=== PATIENT | female | born 1960 | race Caucasian/White ===

== ENCOUNTER 2017-03-24 19:52 | Emergency (ER) | payer OTHER, MEDICARE ==
--- NOTE | 2017-03-24 21:54 | RADIOLOGY REPORT (SQ) ---
EXAM DESCRIPTION: NOSE/NASAL BONES COMPLETED DATE/TIME: 03/24/2017 9:41 pm REASON FOR STUDY: Injury COMPARISON: None. NUMBER OF VIEWS: Three view. TECHNIQUE: Images of the facial and nasal bones acquired. LIMITATIONS: None. FINDINGS: ORBITS: No fracture. No foreign body. SINUSES: No mucosal thickening. No air fluid levels. FACIAL AND NASAL BONES: No fracture. OTHER: Surgical hardware. IMPRESSION: NO FOREIGN BODY OR FRACTURE OF THE FACIAL OR NASAL BONES. TECHNICAL DOCUMENTATION: JOB ID: [id number] [employer]- All Rights Reserved
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
[2017-03-25 00:18] VITALS: BP 136/98
== END 2017-03-25 00:18 | disposition home or self-care (01) ==
LOC: ER 19:52
DX: S02.2XXA Fracture of nasal bones, initial encounter for closed fracture (principal); W50.0XXA Accidental hit or strike by another person, initial encounter
CPT/HCPCS: 70160; 99283

== ENCOUNTER → 2017-04-02 | Outpatient (CLI) | payer OTHER, MEDICARE ==
--- NOTE | 2017-04-02 09:16 | WOMENS IMAGING REPORT ---
EXAM DESCRIPTION: BILAT SCREENING MAMMO W/CAD COMPLETED DATE/TIME: 04/02/2017 9:03 am REASON FOR STUDY: ROUTINE SCREENING; Z12.31 Z12.31 ENCNTR SCREEN MAMMOGRAM FOR MALIGNANT NEOPLASM O F NATI COMPARISON: 05/10/2015 TECHNIQUE: Standard craniocaudal and mediolateral oblique views of each breast recorded using [employer] l acquisition. LIMITATIONS: None. FINDINGS: No masses, calcifications or architectural distortion. No areas of suspicion. Read with the assistance of CAD. .[facility] - R2 Cenova Version 1.3 .[facility] - R2 Cenova Version 1.3 .[facility] - R2 Cenova Version 2.4 .[facility] [place] [facility] - R2 Cenova Version 2.4 .[facility] - R2 [employer] Payer Version 9.2 IMPRESSION: NORMAL MAMMOGRAM. BIRADS 1. BREAST DENSITY: b. There are scattered areas of fibroglandular density. BIRAD: 1 NEGATIVE RECOMMENDATION: ROUTINE SCREENING COMMENT: The patient has been notified of the results by letter per SA requirements. Additional no tification policies are in place for contacting patient with suspicious or incomplete findings. Quality ID #[id number]: The [employer] recommends an annual screening mammogram for women aged 40 years or over. This facility utilizes a reminder system to ensure that all patients receive reminder letters, and/or direct phone calls for appointments. This includes reminders for routine scr eening mammograms, diagnostic mammograms, or other Breast Imaging Interventions when appropriate. Th is patient will be placed in the appropriate reminder system. The [employer] (ACR) has developed recommendations for screening MRI of the breast s in certain patient populations, to be used in conjunction with mammography. Breast MRI surveillanc e may be appropriate for women with more than 20% lifetime risk of developing breast cancer as deter mined by genetic testing, significant family history of the disease, or history of mantle radiation f or Hodgkins Disease. ACR Practice Guidelines 2008. TECHNICAL DOCUMENTATION: FINDING NUMBER: (1) ASSESSMENT: (1) JOB ID: [id number] [employer]- All Rights Reserved
== END ==
LOC: WI 08:31
PROVIDERS: ATTEND Physician Assistant
DX: Z12.31 Encounter for screening mammogram for malignant neoplasm of breast (principal)
CPT/HCPCS: 77067

== ENCOUNTER 2017-06-29 12:27 | Emergency (ER) | payer MEDICARE ==
--- NOTE | 2017-06-29 12:58 | EKG REPORT ---
SEVERITY:- NORMAL ECG - SINUS RHYTHM : Confirmed by: Perlita Wood 29-Jun-2017 12:57:57
[2017-06-29] MEDS ORDERED: ACETAMINOPHEN 325 MG TABLET PO ONE (13:59)
--- NOTE | 2017-06-29 14:00 | ER Document Report ---
ED Medical Screen (RME) - General Chief Complaint: Back Pain Stated Complaint: BACK PAIN Time Seen by Provider: 06/29/17 13:58 Notes: Patient complains of substernal chest pain to go straight through to her back. She states it started approximately 11 AM this morning. She has had some nausea and some shortness of breath. She has a history of mitral valve prolapse. No history of coronary artery disease. No previous stress test. TRAVEL OUTSIDE OF THE [place] IN LAST 30 DAYS: No - Related Data Allergies/Adverse Reactions: aspirin [Aspirin] Allergy (Intermediate, Verified 06/29/17 13:41) VOMITING Iodinated Contrast- Oral and IV Dye Allergy (Verified 06/29/17 13:41) Past Medical History - Social History Chew tobacco use (# tins/day): No Frequency of alcohol use: None Drug Abuse: None - Past Medical History Cardiac Medical History: Reports: Hx Hypercholesterolemia, Hx Hypertension, Hx Heart Murmur - MVP Neurological Medical History: Reports: Hx Migraine - Since age 9. Endocrine Medical History: Reports: Hx Diabetes Mellitus Type 1, Hx Diabetes Mellitus Type 2, Hx Hypothyroidism Renal/ Medical History: Reports: Hx Ovarian Cysts. Denies: Hx Peritoneal Dialysis GI Medical History: Reports: Hx Gastroesophageal Reflux Disease Musculoskeltal Medical History: Reports Hx Musculoskeletal Deformity Past Surgical History: Reports: Hx Cholecystectomy, Hx Hysterectomy, Hx Orthopedic Surgery - Failed L4-L5 and L5-S1 fusion, rotator cuff surgery, Hx Tubal Ligation - Immunizations Immunizations up to date: Yes Hx Diphtheria, Pertussis, Tetanus Vaccination: Yes Physical Exam - Vital signs Vitals: Temp Pulse Resp BP Pulse Ox 97.5 F 68 16 143/81 H 96 06/29/17 12:50 06/29/17 12:50 06/29/17 12:50 06/29/17 12:50 06/29/17 12:50 Course - Vital Signs Vital signs: Temp Pulse Resp BP Pulse Ox 97.5 F 68 16 143/81 H 96 06/29/17 12:50 06/29/17 12:50 06/29/17 12:50 06/29/17 12:50 06/29/17 12:50
--- NOTE | 2017-06-29 14:36 | RADIOLOGY REPORT (SQ) ---
EXAM DESCRIPTION: CHEST 2 VIEWS COMPLETED DATE/TIME: 06/29/2017 2:19 pm REASON FOR STUDY: cp COMPARISON: Two-view chest 03/20/2013 EXAM PARAMETERS: NUMBER OF VIEWS: two views TECHNIQUE: Digital Frontal and Lateral radiographic views of the chest acquired. RADIATION DOSE: NA LIMITATIONS: none FINDINGS: LUNGS AND PLEURA: Stable minimal scarring in the right middle lobe. No acute infiltrates. No pleural effusion. No pneumothorax. MEDIASTINUM AND HILAR STRUCTURES: No masses or contour abnormalities. HEART AND VASCULAR STRUCTURES: Heart normal size. No evidence for failure. BONES: No acute findings. HARDWARE: Clips right upper quadrant post cholecystectomy OTHER: No other significant finding. IMPRESSION: NO ACUTE RADIOGRAPHIC FINDING IN THE CHEST. TECHNICAL DOCUMENTATION: JOB ID: [id number] [employer]- All Rights Reserved Reading location - IP/workstation name: [facility]-[email or web address]
[2017-06-29 14:43] LABS: ABSOLUTE BASOPHILS # (AUTO) 0.1 10^3/uL (0.0-0.2); ABSOLUTE EOSINOPHILS # (AUTO) 0.5 10^3/uL (0.0-0.6); ABSOLUTE LYMPHOCYTES (AUTO) 2.6 10^3/uL (0.5-4.7); ABSOLUTE MONOCYTES (AUTO) 0.7 10^3/uL (0.1-1.4); ABSOLUTE NEUT (AUTO) 4.3 10^3/uL (1.7-8.2); BASOPHILS % (AUTO) 1.4 % (0-2); EOSINOPHILS % (AUTO) 5.5 % (0-6); HEMATOCRIT 44.7 % (36.0-47.0); HEMOGLOBIN 14.9 g/dL (12.0-15.5); LYMPHOCYTES % (AUTO) 31.8 % (13-45); MEAN CORPUSCULAR HEMOGLOBIN 29.3 pg (27.0-33.4); MEAN CORPUSCULAR HGB CONC 33.2 g/dL (32.0-36.0); MEAN CORPUSCULAR VOLUME 88 fl (80-97); MONOCYTES % (AUTO) 8.4 % (3-13); PLATELET COUNT 224 10^3/uL (150-450); RED BLOOD COUNT 5.08 10^6/uL (3.72-5.28); RED CELL DISTRIBUTION WIDTH 14.1 % (11.5-14.0); SEGMENTED NEUTROPHILS % (AUTO) 52.9 % (42-78); TOTAL CELLS COUNTED % (AUTO) 100 %; WHITE BLOOD COUNT 8.2 10^3/uL (4.0-10.5)
[2017-06-29 14:54] LABS: APPEARANCE,URINE SLIGHTLY-CLOUDY; BILIRUBIN,URINE NEGATIVE (NEGATIVE); COLOR,URINE YELLOW; GLUCOSE, URINE NEGATIVE (NEGATIVE); KETONES,URINE NEGATIVE (NEGATIVE); LEUKOCYTE ESTERASE,URINE LARGE (NEGATIVE); NITRITE,URINE NEGATIVE (NEGATIVE); PROTEIN,URINE NEGATIVE (NEGATIVE); UROBILINOGEN,URINE NEGATIVE mg/dL (<2.0)
[2017-06-29 15:01] LABS: ALANINE AMINOTRANSFERASE 28 U/L (9-52); ALBUMIN 4.5 g/dL (3.5-5.0); ALKALINE PHOSPHATASE 64 U/L (38-126); ANION GAP 11 (5-19); ASPARTATE AMINO TRANSFERASE 19 U/L (14-36); BILIRUBIN,DIRECT 0.2 mg/dL (0.0-0.4); BILIRUBIN,TOTAL 0.3 mg/dL (0.2-1.3); BLOOD UREA NITROGEN 10 mg/dL (7-20); CALCIUM 10.3 mg/dL (8.4-10.2); CARBON DIOXIDE 27 mmol/L (22-30); CHLORIDE 108 mmol/L (98-107); GLUCOSE 103 mg/dL (75-110); LIPASE 199.3 U/L (23-300); SODIUM 146.3 mmol/L (137-145); TOTAL PROTEIN 7.3 g/dL (6.3-8.2)
[2017-06-29] MEDS ORDERED: PREDNISONE 20 MG TABLET PO ONE (16:39)
--- NOTE | 2017-06-29 16:39 | ER Document Report ---
ED General - General Chief Complaint: Back Pain Stated Complaint: BACK PAIN Time Seen by Provider: 06/29/17 13:58 Mode of Arrival: Ambulatory Information source: Patient Notes: 56-year-old female history of hypertension hyperlipidemia diabetes presents with complaints of chest wall pain. Patient denies any fevers or chills denies any shortness of breath of breathing. Patient notes with range of motion her pain worsens,. Patient denies any coronary artery disease patient notes symptoms started just prior to arrival TRAVEL OUTSIDE OF THE [place] IN LAST 30 DAYS: No - HPI Onset: Just prior to arrival Onset/Duration: Sudden Quality of pain: Burning Severity: Mild Pain Level: 1 Associated symptoms: Body/muscle aches, Chest pain Exacerbated by: Movement Relieved by: Denies Similar symptoms previously: No Recently seen / treated by doctor: No - Related Data Allergies/Adverse Reactions: aspirin [Aspirin] Allergy (Intermediate, Verified 06/29/17 13:41) VOMITING Iodinated Contrast- Oral and IV Dye Allergy (Verified 06/29/17 13:41) Past Medical History - Social History Smoking Status: Never Smoker Cigarette use (# per day): No Chew tobacco use (# tins/day): No Smoking Education Provided: No Frequency of alcohol use: None Drug Abuse: None Family History: Reviewed & Not Pertinent Patient has suicidal ideation: No Patient has homicidal ideation: No - Past Medical History Cardiac Medical History: Reports: Hx Hypercholesterolemia, Hx Hypertension, Hx Heart Murmur - MVP Neurological Medical History: Reports: Hx Migraine - Since age 9. Endocrine Medical History: Reports: Hx Diabetes Mellitus Type 1, Hx Diabetes Mellitus Type 2, Hx Hypothyroidism Renal/ Medical History: Reports: Hx Ovarian Cysts. Denies: Hx Peritoneal Dialysis GI Medical History: Reports: Hx Gastroesophageal Reflux Disease Musculoskeltal Medical History: Reports Hx Musculoskeletal Deformity Past Surgical History: Reports: Hx Cholecystectomy, Hx Hysterectomy, Hx Orthopedic Surgery - Failed L4-L5 and L5-S1 fusion, rotator cuff surgery, Hx Tubal Ligation - Immunizations Immunizations up to date: Yes Hx Diphtheria, Pertussis, Tetanus Vaccination: Yes Hx Pneumococcal Vaccination: 11/30/12 Review of Systems - Review of Systems Notes: REVIEW OF SYSTEMS: CONSTITUTIONAL : Denies fever, chills, or sweats. Denies recent illness. EENT: Denies eye, ear, throat, or mouth pain or symptoms. Denies nasal or sinus congestion or discharge. Denies throat, tongue, or mouth swelling or difficulty swallowing. CARDIOVASCULAR: Admits to chest wall pain sternal pain RESPIRATORY: Denies cough, cold, or chest congestion. Denies shortness of breath, difficulty breathing, or wheezing. GASTROINTESTINAL: Denies abdominal pain or distention. Denies nausea, vomiting , or diarrhea. Denies blood in vomitus, stools, or per rectum. Denies black, tarry stools. Denies constipation. GENITOURINARY: Denies difficulty urinating, painful urination, burning, frequency, blood in urine, or discharge. FEMALE GENITOURINARY: Denies vaginal bleeding, heavy or abnormal periods, irregular periods. Denies vaginal discharge or odor. MUSCULOSKELETAL: Denies back or neck pain or stiffness. Denies joint pain or swelling. SKIN: Denies rash, lesions or sores. HEMATOLOGIC : Denies easy bruising or bleeding. LYMPHATIC: Denies swollen, enlarged glands. NEUROLOGICAL: Denies confusion or altered mental status. Denies passing out or loss of consciousness. Denies dizziness or lightheadedness. Denies headache. Denies weakness or paralysis or loss of use of either side. Denies problems with gait or speech. Denies sensory loss, numbness, or tingling. Denies seizures. PSYCHIATRIC: Denies anxiety or stress. Denies depression, suicidal ideation, or homicidal ideation. ALL OTHER SYSTEMS REVIEWED AND NEGATIVE. PHYSICAL EXAMINATION: GENERAL: Well-appearing, well-nourished and in no acute distress. HEAD: Atraumatic, normocephalic. EYES: Pupils equal round and reactive to light, extraocular movements intact, conjunctiva are normal. ENT: Nares patent, oropharynx clear without exudates. Moist mucous membranes. NECK: Normal range of motion, supple without lymphadenopathy LUNGS: Breath sounds clear to auscultation bilaterally and equal. No wheezes rales or rhonchi. HEART: Regular rate and rhythm without murmurs chest wall pain completely reproducing same exact pain is patient's complaint ABDOMEN: Soft, nontender, nondistended abdomen. No guarding, no rebound. No masses appreciated. Female : deferred Musculoskeletal: Normal range of motion, no pitting or edema. No cyanosis. NEUROLOGICAL: Cranial nerves grossly intact. Normal speech, normal gait. Normal sensory, motor exams PSYCH: Normal mood, normal affect. SKIN: Warm, Dry, normal turgor, no rashes or lesions noted. Dictation was performed using [employer] voice recognition software Physical Exam - Vital signs Vitals: Temp Pulse Resp BP Pulse Ox 97.5 F 68 16 143/81 H 96 06/29/17 12:50 06/29/17 12:50 06/29/17 12:50 06/29/17 12:50 06/29/17 12:50 Course - Re-evaluation Re-evalutation: 06/29/17 19:41 Upon palpation of the patient's chest wall reproduces exact pain which makes her jump up. Therefore I have very low suspicion that this is cardiac in nature , lab work was performed and cardiac enzymes were negative. Patient is otherwise well-appearing no distress, given that this was completely reproducible I explained to her that nonetheless this is not a complete cardiac evaluation and that there is a possibility that this may be in fact cardiac in nature that she will require further evaluation by cardiology, patient states she understands and will do so After performing a Medical Screening Examination, I estimate there is LOW risk for RUPTURED ESOPHAGUS, PNEUMOTHORAX, PULMONARY EMBOLISM, ACUTE CORONARY SYNDROME, OR THORACIC AORTIC DISSECTION, thus I consider the discharge disposition reasonable. I have reevaluated this patient multiple times and no significant life threatening changes are noted. The patient and I have discussed the diagnosis and risks, and we agree with discharging home with close follow-up. We also discussed returning to the Emergency Department immediately if new or worsening symptoms occur. We have discussed the symptoms which are most concerning (e.g., bloody sputum, worsening pain or shortness of breath) that necessitate immediate return. - Vital Signs Vital signs: Temp Pulse Resp BP Pulse Ox 97.9 F 72 16 141/88 H 99 06/29/17 17:03 06/29/17 17:03 06/29/17 17:03 06/29/17 17:03 06/29/17 17:03 - Laboratory Result Diagrams: 06/29/17 14:30 06/29/17 14:30 Laboratory results interpreted by me: 06/29/17 06/29/17 06/29/17 14:30 14:30 14:30 RDW 14.1 H Sodium 146.3 H Chloride 108 H Calcium 10.3 H Urine Blood SMALL H Ur Leukocyte Esterase LARGE H - Diagnostic Test Radiology reviewed: Image reviewed - Chest x-ray 2 view notes no acute abnormality, Reports reviewed - EKG Interpretation by Me EKG shows normal: Sinus rhythm, [place], Intervals, QRS Complexes Discharge - Discharge Clinical Impression: Chest wall pain Back pain Qualifiers: Back pain location: thoracic back pain Chronicity: acute Back pain laterality: midline Qualified Code(s): M54.6 - Pain in thoracic spine Condition: Stable Disposition: HOME, SELF-CARE Instructions: Low Back Pain ([facility]) Prescriptions: Prednisone [Deltasone 20 mg Tablet] 3 tab PO DAILY 5 Days tablet Referrals: NAHUN ROSAS MD [ACTIVE STAFF] - Follow up tomorrow
[2017-06-29 17:05] VITALS: BP 141/88
== END 2017-06-29 17:03 | disposition home or self-care (01) ==
LOC: ER 12:27
DX: R07.89 Other chest pain (principal); M54.6 Pain in thoracic spine; M79.1 Myalgia; E78.00 Pure hypercholesterolemia, unspecified; E11.9 Type 2 diabetes mellitus without complications; E03.9 Hypothyroidism, unspecified; Z90.49 Acquired absence of other specified parts of digestive tract; Z98.1 Arthrodesis status; Z90.710 Acquired absence of both cervix and uterus
CPT/HCPCS: 93005; 99284; 36415; 83690; 85025; 80053; 81001; 84484; 71046; 93010; A9270 ×2; J7512

== ENCOUNTER 2017-11-29 20:04 | Emergency (ER) | payer MEDICARE, OTHER ==
[2017-11-29 20:28] VITALS: BP 144/82
[2017-11-29] MEDS ORDERED: DIPH/PERTUSS(ACELL)/TETANUS VAC/PF 0.5 ML SYR (>=10YO) IM ONE (22:03)
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
== END 2017-11-29 22:50 | disposition home or self-care (01) ==
LOC: ER 20:04
DX: T23.111A Burn of first degree of right thumb (nail), initial encounter (principal); X12.XXXA Contact with other hot fluids, initial encounter; E11.9 Type 2 diabetes mellitus without complications; I10 Essential (primary) hypertension
CPT/HCPCS: 90471; 90715; 99283

== ENCOUNTER 2018-03-22 14:55 | Emergency (ER) | payer OTHER, MEDICARE ==
[2018-03-22] MEDS ORDERED: HYDROCODONE/ACETAMINOPHEN 5-325 MG TABLET PO ONE (16:48)
[2018-03-22] MEDS ORDERED: CYCLOBENZAPRINE HCL 10 MG TABLET PO ONE (16:48)
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
[2018-03-22 18:22] VITALS: BP 150/93
== END 2018-03-22 18:22 | disposition home or self-care (01) ==
LOC: ER 14:55
DX: M54.2 Cervicalgia (principal); M54.9 Dorsalgia, unspecified; G89.29 Other chronic pain; V87.7XXA Person injured in collision between other specified motor vehicles (traffic), initial encounter; I10 Essential (primary) hypertension; E11.9 Type 2 diabetes mellitus without complications
CPT/HCPCS: 72040; 72070; 72100; 99283

== ENCOUNTER 2018-05-12 08:23 | Emergency (ER) | payer OTHER, MEDICARE ==
[2018-05-12] MEDS ORDERED: LIDOCAINE 5% (700 MG) TRANSDERMAL ADH..PATCH TP ONE (09:20)
--- NOTE | 2018-05-12 10:09 | RADIOLOGY REPORT (SQ) ---
EXAM DESCRIPTION: T SPINE AP/LAT COMPLETED DATE/TIME: 05/12/2018 9:44 am REASON FOR STUDY: back pain COMPARISON: 03/22/2018 NUMBER OF VIEWS: Two views. TECHNIQUE: AP and lateral radiographic images acquired of the thoracic spine. LIMITATIONS: None. FINDINGS: MINERALIZATION: Normal. ALIGNMENT: Gentle S-shaped scoliosis of the thoracic spine. VERTEBRAE: No fracture or bone lesion. Maintained height, normal segmentation. DISCS: Moderate to severe multilevel disc degenerative disease and osteophytosis. HARDWARE: None in the spine. MEDIASTINUM AND SOFT TISSUES: Normal heart size and aortic contour. No soft tissue abnormality. VISUALIZED LUNG MARIEE: Clear. OTHER: No other significant finding. IMPRESSION: No fracture dislocation of the thoracic spine. Moderate to severe multilevel disc degen erative disease and osteophytosis associated with a gentle scoliosis. TECHNICAL DOCUMENTATION: JOB ID: [id number] [employer]- All Rights Reserved Reading location - IP/workstation name: [email or web address]
[2018-05-12] MEDS ORDERED: TRAMADOL HCL 50 MG TABLET PO ONE (11:19)
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
[2018-05-12 11:39] VITALS: BP 151/92
== END 2018-05-12 11:36 | disposition home or self-care (01) ==
LOC: ER 08:23
DX: M54.6 Pain in thoracic spine (principal); M89.8X1 Other specified disorders of bone, shoulder; I10 Essential (primary) hypertension; E11.9 Type 2 diabetes mellitus without complications; M54.5 Low back pain; Z88.6 Allergy status to analgesic agent; Z91.041 Radiographic dye allergy status; Z98.890 Other specified postprocedural states
CPT/HCPCS: 72070; 99283

== ENCOUNTER → 2018-06-25 | Outpatient (CLI) | payer MEDICAID, MEDICARE, OTHER ==
--- NOTE | 2018-06-25 10:38 | WOMENS IMAGING REPORT ---
EXAM DESCRIPTION: BONE DENSITY HIP/SPINE COMPLETED DATE/TIME: 06/25/2018 10:12 am REASON FOR STUDY: Z78.0 ASYMPTOMATIC MENOPAUSAL STATE Z12.31 ENCNTR SCREEN MAMMOGRAM FOR MALIGNANT NEOPLASM OF NATI Z78.0 ASYMPTOMATIC MENOPAUSAL STATE COMPARISON: None. TECHNIQUE: Dual-Energy X-ray Absorptiometry (DEXA) of the Hip and Forearm. LIMITATIONS: None. FINDINGS: HIP: The bone mineral density (BMD) measured in the left hip correlates with a T-score of -0.6, which is n ormal as defined by the World Health Organization. FOREARM: The bone mineral density (BMD) measured in the left forearm correlates with a T-score of -0.7 which i s normal as defined by the World Health Organization. IMPRESSION: 1. HIP: NORMAL. 2. FOREARM: NORMAL. COMMENT: The World Health Organization defines low BMD as follows: T-score: Normal: Greater than -1.0 Osteopenia: Between -1.0 and -2.5 Osteoporosis: Less than -2.5 without fractures Established osteoporosis: Less than -2.5 with fractures In general, you may wish to consider: Diagnosis Treatment Follow-up DEXA Normal BMD Prevention 2-3 years Osteopenia Prevention/Therapy 1-2 years Osteoporosis Therapy Yearly TECHNICAL DOCUMENTATION: JOB ID: [id number] [employer]- All Rights Reserved Reading location - IP/workstation name: [email or web address]
--- NOTE | 2018-06-25 10:46 | WOMENS IMAGING REPORT ---
EXAM DESCRIPTION: BILAT SCREENING MAMMO W/CAD COMPLETED DATE/TIME: 06/25/2018 10:11 am REASON FOR STUDY: Z12.31 ENCOUNTER FOR SCREENING MAMMOGRAM FOR MALIGNANT NEOPLASM OF PLVQCVU80.31 E NCNTR SCREEN MAMMOGRAM FOR MALIGNANT NEOPLASM OF BREZ78.0 ASYMPTOMATIC MENOPAUSAL STATE COMPARISON: 04/02/2017 and 05/10/2015. TECHNIQUE: Standard craniocaudal and mediolateral oblique views of each breast recorded using Trulia[employer] l acquisition. LIMITATIONS: None. FINDINGS: RIGHT BREAST MASSES: No suspicious masses. CALCIFICATIONS: No new or suspicious calcifications. ARCHITECTURAL DISTORTION: None. DEVELOPING DENSITY: None. ASYMMETRY: None noted. OTHER: No other significant findings. LEFT BREAST MASSES: No suspicious masses. CALCIFICATIONS: No new or suspicious calcifications. ARCHITECTURAL DISTORTION: None. DEVELOPING DENSITY: Developing density in the lateral breast, located 4 cm from the nipple, best imag ed on the CC view. ASYMMETRY: None noted. OTHER: No other significant findings. Read with the assistance of CAD. .[facility] - R2 Cenova Version 1.3 .[facility] - R2 Cenova Version 1.3 .[facility] - R2 Cenova Version 2.4 .[facility] R2 Cenova Version 2.4 .[facility] - R2 Regenerator Operator Version 9.2 IMPRESSION: Developing density in the lateral left breast. Stable mammographic appearance of the ri ght breast. BREAST DENSITY: b. There are scattered areas of fibroglandular density. BIRAD: 0 Incomplete: Needs Additional Imaging Evaluation and/or prior Mammograms for Comparison. RECOMMENDATION: RECOMMENDED FOLLOW-UP: Recommend additional evaluation with breast tomosynthesis (pr eferred) or compression views of the left breast and ultrasound of the left breast. Recommend routin e screening mammography of the right breast. The patient will be contacted for additional imaging. COMMENT: The patient has been notified of the results by letter per SA requirements. Additional no tification policies are in place for contacting patient with suspicious or incomplete findings. Quality ID #[id number]: The [employer] recommends an annual screening mammogram for women aged 40 years or over. This facility utilizes a reminder system to ensure that all patients receive reminder letters, and/or direct phone calls for appointments. This includes reminders for routine scr eening mammograms, diagnostic mammograms, or other Breast Imaging Interventions when appropriate. Th is patient will be placed in the appropriate reminder system. The [employer] (ACR) has developed recommendations for screening MRI of the breast s in certain patient populations, to be used in conjunction with mammography. Breast MRI surveillanc e may be appropriate for women with more than 20% lifetime risk of developing breast cancer as deter mined by genetic testing, significant family history of the disease, or history of mantle radiation f or Hodgkins Disease. ACR Practice Guidelines 2008. TECHNICAL DOCUMENTATION: FINDING NUMBER: (1) ASSESSMENT: (1) JOB ID: [id number] [employer]- All Rights Reserved Reading location - IP/workstation name: [email or web address]
== END ==
LOC: WI 09:23
PROVIDERS: ATTEND Physician Assistant
DX: Z12.31 Encounter for screening mammogram for malignant neoplasm of breast (principal); R92.2 Inconclusive mammogram; Z78.0 Asymptomatic menopausal state
CPT/HCPCS: 77067; 77080

== ENCOUNTER → 2018-07-08 | Outpatient (CLI) | payer MEDICARE, OTHER ==
--- NOTE | 2018-07-08 12:31 | WOMENS IMAGING REPORT ---
EXAM DESCRIPTION: LEFT DIAGNOSTIC MAMMO W/CAD; U/S BREAST UNILAT LIMITED COMPLETED DATE/TIME: 07/08/2018 8:52 am; 07/08/2018 9:23 am REASON FOR STUDY: R92.2 INCONCLUSIVE MAMMOGRAM; LT BREAST R92.2 R92.2 INCONCLUSIVE MAMMOGRAM COMPARISON: Mammograms 05/10/2015, 04/02/2017, 06/25/2018 TECHNIQUE: Cone compression craniocaudal and mediolateral oblique images of the breast recorded with digital acquisition. Left breast 90 mediolateral view. Left breast ultrasound was also performed LIMITATIONS: None. FINDINGS: BREAST LATERALITY: left MASSES: Persistent low-density well-circumscribed nodule left breast 3 o'clock position. This was so bsequently shown at ultrasound to represent a simple cyst. CALCIFICATIONS: No new or suspicious calcifications. ARCHITECTURAL DISTORTION: None. DEVELOPING DENSITY: None. ASYMMETRY: None noted. OTHER: No other significant findings. Read with the assistance of CAD. .[facility] - R2 [employer] Machine Helper Version 9.2 Left breast ultrasound: About 4 cm from the nipple laterally, 9 o'clock position there is a 1.7 x 0.6 cm left breast parenchy mal cyst. This accounts for the mammographic findings. IMPRESSION: No mammographic or sonographic evidence for malignancy left breast BREAST DENSITY: b. There are scattered areas of fibroglandular density. BIRAD: 2 Benign findings. RECOMMENDATION: RECOMMENDED FOLLOW UP: Please continue yearly bilateral screening mammography in July 2019 SPECIFIC INTERVENTION/IMAGING/CONSULTATION RECOMMENDED:No additional intervention/ imaging/consultati on needed at this time. COMMUNICATION:Patient notified by letter COMMENT: The patient has been notified of the results by letter per MQSA requirements. Additional no tification policies are in place for contacting patient with suspicious or incomplete findings. Quality ID #225: The [employer] recommends an annual screening mammogram for women aged 40 years or over. This facility utilizes a reminder system to ensure that all patients receive reminder letters, and/or direct phone calls for appointments. This includes reminders for routine scr eening mammograms, diagnostic mammograms, or other Breast Imaging Interventions when appropriate. Th is patient will be placed in the appropriate reminder system. TECHNICAL DOCUMENTATION: FINDING NUMBER: (1) ASSESSMENT: (1) JOB ID: [id number] [employer]- All Rights Reserved Reading location - IP/workstation name: [email or web address]
--- NOTE | 2018-07-08 12:31 | WOMENS IMAGING REPORT ---
EXAM DESCRIPTION: LEFT DIAGNOSTIC MAMMO W/CAD; U/S BREAST UNILAT LIMITED COMPLETED DATE/TIME: 07/08/2018 8:52 am; 07/08/2018 9:23 am REASON FOR STUDY: R92.2 INCONCLUSIVE MAMMOGRAM; LT BREAST R92.2 R92.2 INCONCLUSIVE MAMMOGRAM COMPARISON: Mammograms 05/10/2015, 04/02/2017, 06/25/2018 TECHNIQUE: Cone compression craniocaudal and mediolateral oblique images of the breast recorded with digital acquisition. Left breast 90 mediolateral view. Left breast ultrasound was also performed LIMITATIONS: None. FINDINGS: BREAST LATERALITY: left MASSES: Persistent low-density well-circumscribed nodule left breast 3 o'clock position. This was so bsequently shown at ultrasound to represent a simple cyst. CALCIFICATIONS: No new or suspicious calcifications. ARCHITECTURAL DISTORTION: None. DEVELOPING DENSITY: None. ASYMMETRY: None noted. OTHER: No other significant findings. Read with the assistance of CAD. .[facility] - R2 Working Supervisor Version 9.2 Left breast ultrasound: About 4 cm from the nipple laterally, 9 o'clock position there is a 1.7 x 0.6 cm left breast parenchy mal cyst. This accounts for the mammographic findings. IMPRESSION: No mammographic or sonographic evidence for malignancy left breast BREAST DENSITY: b. There are scattered areas of fibroglandular density. BIRAD: 2 Benign findings. RECOMMENDATION: RECOMMENDED FOLLOW UP: Please continue yearly bilateral screening mammography in July 2019 SPECIFIC INTERVENTION/IMAGING/CONSULTATION RECOMMENDED:No additional intervention/ imaging/consultati on needed at this time. COMMUNICATION:Patient notified by letter COMMENT: The patient has been notified of the results by letter per MQSA requirements. Additional no tification policies are in place for contacting patient with suspicious or incomplete findings. Quality ID #225: The [employer] recommends an annual screening mammogram for women aged 40 years or over. This facility utilizes a reminder system to ensure that all patients receive reminder letters, and/or direct phone calls for appointments. This includes reminders for routine scr eening mammograms, diagnostic mammograms, or other Breast Imaging Interventions when appropriate. Th is patient will be placed in the appropriate reminder system. TECHNICAL DOCUMENTATION: FINDING NUMBER: (1) ASSESSMENT: (1) JOB ID: [id number] [employer]- All Rights Reserved Reading location - IP/workstation name: [email or web address]
== END ==
LOC: WI 08:41
PROVIDERS: ATTEND Physician Assistant
DX: R92.2 Inconclusive mammogram (principal)
CPT/HCPCS: 76642

== ENCOUNTER 2018-08-16 15:31 | Emergency (ER) | payer OTHER, MEDICARE ==
[2018-08-16] MEDS ORDERED: LIDOCAINE 1%/EPINEPHRINE INJ 20 ML VIAL INJ ONE (16:14)
[2018-08-16] MEDS ORDERED: DIPH/PERTUSS(ACELL)/TETANUS VAC/PF 0.5 ML SYR (>=10YO) IM ONE (16:28)
[2018-08-16] MEDS ORDERED: ACETAMINOPHEN 325 MG TABLET PO ONE (16:28)
--- NOTE | 2018-08-16 16:44 | ER Document Report ---
ED Fall - General Chief Complaint: Fall Injury Stated Complaint: FALL-NECK/HEAD/LEG PAIN Time Seen by Provider: 08/16/18 16:13 Primary Care Provider: IAM HAMMOND PA-C [Primary Care Provider] - Follow up as needed TRAVEL OUTSIDE OF THE [place] IN LAST 30 DAYS: No - HPI Notes: Patient is a 57-year-old female that presents to the emergency department for chief complaint of fall. Patient states she was carrying at bedside table and tripped over a pallet as she was walking backwards. She states she fell backwards hitting the back of her head on the ground. She denied any loss of consciousness. The table she was carrying landed on her left leg. She is not sure of her last tetanus vaccine. She does complain of pain on the back of her left head and laceration in that area. She has radiation of her headache down the right side of her neck into her right shoulder. Her states she was on her right side when she fell. She does have some pain in the right shoulder with range of motion. Patient also complaining of a sharp pain in her left lower extremity. She denies any ankle or knee pain on the left. She has not taken any medication for pain prior to coming to the emergency room. Past Medical History: Hyperlipidemia, chronic back pain Past Surgical History: Lumbar fusion, cholecystectomy, partial hysterectomy, right biceps tendon repair Social History: Occasional alcohol. Denies tobacco and drug use Family History: Reviewed and noncontributory for presenting illness Allergies: Reviewed, see documented allergy list. REVIEW OF SYSTEMS: CONSTITUTIONAL : No fever No chills No diaphoresis No recent illness EENT: No vision changes No congestion No sore throat CARDIOVASCULAR: No chest pain No palpitations RESPIRATORY: No shortness of breath No cough No difficulty breathing GASTROINTESTINAL: No abdominal pain No nausea No vomiting No diarrhea GENITOURINARY: No dysuria No hematuria No difficulty urinating MUSCULOSKELETAL: No back pain Right shoulder pain Left leg pain SKIN: No rashes Laceration to head and left leg LYMPHATIC: No swollen, enlarged glands. NEUROLOGICAL: No lightheadedness headache No weakness No paresthesias PSYCHIATRIC: No anxiety No depression PHYSICAL EXAMINATION: Vital signs reviewed, nursing noted reviewed. GENERAL: Well-appearing, well-nourished and in no acute distress. HEAD: Atraumatic, normocephalic. EYES: Eyes appear normal, extraocular movements intact, sclera anicteric, conjunctiva are normal. ENT: nares patent, oropharynx clear without exudates. Moist mucous membranes. NECK: Cervical collar in place, no midline spinal tenderness, supple without lymphadenopathy LUNGS: Breath sounds clear to auscultation bilaterally and equal. No wheezes rales or rhonchi. HEART: Regular rate and rhythm without murmurs ABDOMEN: Soft, nontender, normoactive bowel sounds. No rebound, guarding, or rigidity. No masses appreciated. EXTREMITIES: Normal range of motion of right shoulder with no bony tenderness, tenderness palpation over deltoid with overlying ecchymosis, tenderness to palpation of the entire left tibia without deformity, normal left ankle exam including nontender with normal range of motion. Normal left knee exam with no proximal fibular tenderness, pelvis stable, no pitting or edema. NEUROLOGICAL: No focal neurological deficits. Moves all extremities spontaneously Motor and sensory grossly intact on exam. PSYCH: Normal mood, normal affect. SKIN: Warm, Dry, normal turgor, superficial 1.0 cm linear laceration abrasion to left pretibial lower leg, 3.0 centimeters linear full-thickness laceration to base of scalp centrally with mild bleeding, ecchymosis to right shoulder laterally - Related data Allergies/Adverse Reactions: aspirin [Aspirin] Allergy (Intermediate, Verified 05/12/18 08:29) VOMITING Iodinated Contrast- Oral and IV Dye Allergy (Verified 05/12/18 08:29) Past Medical History - Social History Smoking Status: Unknown if Ever Smoked Family History: Reviewed & Not Pertinent Patient has suicidal ideation: No Patient has homicidal ideation: No - Past Medical History Cardiac Medical History: Reports: Hx Hypercholesterolemia, Hx Hypertension, Hx Heart Murmur - MVP Neurological Medical History: Reports: Hx Migraine - Since age 9. Endocrine Medical History: Reports: Hx Diabetes Mellitus Type 1, Hx Diabetes Mellitus Type 2, Hx Hypothyroidism Renal/ Medical History: Reports: Hx Ovarian Cysts. Denies: Hx Peritoneal Dialysis GI Medical History: Reports: Hx Gastroesophageal Reflux Disease Musculoskeletal Medical History: Reports Hx Musculoskeletal Deformity Past Surgical History: Reports: Hx Cholecystectomy, Hx Gynecologic Surgery - D&C x 4, Hx Hysterectomy, Hx Orthopedic Surgery - Failed L4-L5 and L5-S1 fusion, rotator cuff surgery right, Hx Tubal Ligation - Immunizations Immunizations up to date: Yes Hx Diphtheria, Pertussis, Tetanus Vaccination: Yes Hx Pneumococcal Vaccination: 11/30/12 Physical Exam - Vital signs Vitals: Temp Pulse Resp BP Pulse Ox 98.1 F 82 16 143/92 H 97 08/16/18 15:49 08/16/18 15:49 08/16/18 15:49 08/16/18 15:49 08/16/18 15:49 Course - Re-evaluation Re-evalutation: 08/16/18 16:44 Vitals reviewed. Nursing notes reviewed. Patient was ordered Tylenol for pain. She has a superficial abrasion to her left lower extremity as well as a occ ipital laceration. Patient is in a cervical collar. CT scan of her head and cervical spine as well as x-ray of the right shoulder and left tibia have been ordered to evaluate for injury. 08/16/18 17:[address] 08/16/18 16:14 IMPRESSION: CHRONIC DEGENERATIVE CHANGES. NO ACUTE FINDINGS. Head CT 08/16/18 16:14 IMPRESSION: NORMAL BRAIN CT WITHOUT CONTRAST. EVIDENCE OF ACUTE STROKE: NO. Shoulder X-Ray 08/16/18 16:27 IMPRESSION: NO RADIOGRAPHIC EVIDENCE OF ACUTE INJURY. Tibia/Fibula X-Ray 08/16/18 16:27 IMPRESSION: No fracture. Patient's images are unremarkable. She has no acute bony injury or intracranial hemorrhage. Patient's wounds were cleaned. The left lower extremity wound was repaired with Dermabond. Patient did receive nabeel for her scalp laceration. She was counseled on wound care and close head injury precautions. She is stable for discharge. - Vital Signs Vital signs: Temp Pulse Resp BP Pulse Ox 98.1 F 82 16 143/92 H 97 08/16/18 15:49 08/16/18 15:49 08/16/18 15:49 08/16/18 15:49 08/16/18 15:49 Procedures - Laceration/Wound Repair Left Leg Time completed: :18 Wound length (cm): 1.0 Wound's Depth, Shape: Superficial, Linear Laceration pre-procedure: Sterile PPE donned, Sterile drapes applied, Shur-Clens applied Wound Repaired With: Dermabond Complications: No Scalp laceration Time completed: : Wound length (cm): 3.0 Wound's Depth, Shape: Linear Laceration pre-procedure: Sterile PPE donned, Sterile drapes applied, Shur-Clens applied Anesthetic type: 1% Lidocaine w/epi Volume Anesthetic (mLs): 7 Wound explored: Clean, No foreign body removed Irrigated w/ Saline (mLs): 150 Wound Repaired With: [place] Number of Sutures: 6 Layer Closure?: No Post-procedure NV exam normal: Yes Complications: No Discharge - Discharge Clinical Impression: Closed head injury Qualifiers: Encounter type: initial encounter Qualified Code(s): S09.90XA - Unspecified injury of head, initial encounter Scalp laceration Qualifiers: Encounter type: initial encounter Qualified Code(s): S01.01XA - Laceration without foreign body of scalp, initial encounter Laceration of left leg Qualifiers: Encounter type: initial encounter Qualified Code(s): S81.812A - Laceration without foreign body, left lower leg, initial encounter Condition: Stable Disposition: HOME, SELF-CARE Instructions: Tetanus Immunization Given ([facility]), Laceration Care ([facility]), Head Injury Precautions ([facility]) Additional Instructions: Please return to the emergency department if you have any worsening, or concern of your symptoms. Please return to the emergency department if you develop chest pain, difficulty breathing, severe abdominal pain, or ongoing vomiting. Please follow-up with your primary care physician in 2-3 days and any other recommended physicians. If prescribed, take all medications as directed. If you have any questions or concerns do not hesitate to return the emergency de partment for evaluation. Your nabeel need to be removed in 7 to 10 days Referrals: IAM HAMMOND PA-C [Primary Care Provider] - Follow up as needed
--- NOTE | 2018-08-16 16:45 | RADIOLOGY REPORT (SQ) ---
EXAM DESCRIPTION: CT HEAD WITHOUT COMPLETED DATE/TIME: 08/16/2018 4:36 pm REASON FOR STUDY: trauma COMPARISON: 10/05/2014 TECHNIQUE: Axial images acquired through the brain without intravenous contrast. Images reviewed wi th bone, brain and subdural windows. Additional sagittal and coronal reconstructions were generated. Images stored on PACS. All CT scanners at this facility use dose modulation, iterative reconstruction, and/or weight based d osing when appropriate to reduce radiation dose to as low as reasonably achievable (ALARA). [facility]: Dose Right [facility]: CareDose [facility]: Dose Right [facility]: Teradose 4D [facility]: Smart [employer] RADIATION DOSE: CT Rad equipment meets quality standard of care and radiation dose reduction techniq ues were employed. CTDIvol: 53.2 mGy. DLP: 964 mGy-cm. mGy. LIMITATIONS: None. FINDINGS: VENTRICLES: Normal size and contour. CEREBRUM: No masses. No hemorrhage. No midline shift. No evidence for acute infarction. Normal gra y/white matter differentiation. No areas of low density in the white matter. CEREBELLUM: No masses. No hemorrhage. No alteration of density. No evidence for acute infarction. EXTRAAXIAL SPACES: No fluid collections. No masses. ORBITS AND GLOBE: No intra- or extraconal masses. Normal contour of globe without masses. CALVARIUM: No fracture. PARANASAL SINUSES: No fluid or mucosal thickening. SOFT TISSUES: No mass or hematoma. OTHER: No other significant finding. IMPRESSION: NORMAL BRAIN CT WITHOUT CONTRAST. EVIDENCE OF ACUTE STROKE: NO. COMMENT: Quality ID # [id number]: Final reports with documentation of one or more dose reduction techniques (e.g., Automated exposure control, adjustment of the mA and/or kV according to patient size, use of iterative reconstruction technique) TECHNICAL DOCUMENTATION: JOB ID: [id number] [employer]- All Rights Reserved Reading location - IP/workstation name: [email or web address]
--- NOTE | 2018-08-16 16:48 | RADIOLOGY REPORT (SQ) ---
EXAM DESCRIPTION: CT CERVICAL SPINE WITHOUT COMPLETED DATE/TIME: 08/16/2018 4:36 pm REASON FOR STUDY: trauma COMPARISON: None. TECHNIQUE: Axial images acquired through the cervical spine without intravenous contrast. Images re viewed with lung, soft tissue and bone windows. Reconstructed coronal and sagittal MPR images review ed. Images stored on PACS. All CT scanners at this facility use dose modulation, iterative reconstruction, and/or weight based d osing when appropriate to reduce radiation dose to as low as reasonably achievable (ALARA). [facility]: Dose Right [facility]: CareDose [facility]: Dose Right [facility]: Teradose 4D [facility]: Smart Technologies RADIATION DOSE: CT Rad equipment meets quality standard of care and radiation dose reduction techniq ues were employed. CTDIvol: 18.5 mGy. DLP: 357 mGy-cm. mGy. LIMITATIONS: None. FINDINGS: ALIGNMENT: There is straightening of the normal lordotic curvature, likely on the basis of spondylotic change. MINERALIZATION: Normal. VERTEBRAL BODIES: No fractures or dislocation. DISCS: Multilevel disc space narrowing with osteophytes. FACETS, LATERAL MASSES, POSTERIOR ELEMENTS: Facet arthropathy. No fractures. No dislocation. No ac sitka findings. HARDWARE: None in the spine. VISUALIZED RIBS: No fractures. LUNG APICES AND SOFT TISSUES: No significant or acute findings. OTHER: No other significant finding. IMPRESSION: CHRONIC DEGENERATIVE CHANGES. NO ACUTE FINDINGS. TECHNICAL DOCUMENTATION: JOB ID: [id number] Quality ID # [id number]: Final reports with documentation of one or more dose reduction techniques (e.g., Au tomated exposure control, adjustment of the mA and/or kV according to patient size, use of iterative reconstruction technique) 2010 [employer]- All Rights Reserved Reading location - IP/workstation name: [email or web address]
--- NOTE | 2018-08-16 16:55 | RADIOLOGY REPORT (SQ) ---
EXAM DESCRIPTION: TIBIA FIBULA LEFT COMPLETED DATE/TIME: 08/16/2018 4:44 pm REASON FOR STUDY: trauma COMPARISON: None. NUMBER OF VIEWS: Two views. TECHNIQUE: Two radiographic images acquired of the left tibia and fibula to include the knee and ank le in at least one projection. LIMITATIONS: None. FINDINGS: MINERALIZATION: Normal. BONES: No acute fracture or dislocation. No worrisome bone lesions. SOFT TISSUES: No obvious swelling or foreign body. OTHER: No other significant finding. IMPRESSION: No fracture. TECHNICAL DOCUMENTATION: JOB ID: [id number] [place]-72 2010 [employer]- All Rights Reserved Reading location - IP/workstation name: [email or web address]
--- NOTE | 2018-08-16 16:58 | RADIOLOGY REPORT (SQ) ---
EXAM DESCRIPTION: SHOULDER RIGHT 2 OR MORE VIEWS COMPLETED DATE/TIME: 08/16/2018 4:44 pm REASON FOR STUDY: trauma COMPARISON: None. NUMBER OF VIEWS: Three views. TECHNIQUE: Internal rotation, external rotation, and Y view images acquired of the right shoulder. LIMITATIONS: None. FINDINGS: MINERALIZATION: Normal. BONES: No acute fracture or dislocation. No worrisome bone lesions. JOINTS: No dislocation. VISUALIZED LUNGS AND RIBS: No pneumothorax. No rib fracture. SOFT TISSUES: No radiopaque foreign body. OTHER: No other significant finding. IMPRESSION: NO RADIOGRAPHIC EVIDENCE OF ACUTE INJURY. TECHNICAL DOCUMENTATION: JOB ID: [id number] [place]-72 2010 [employer]- All Rights Reserved Reading location - IP/workstation name: [email or web address]
[2018-08-16 17:59] VITALS: BP 132/63
== END 2018-08-16 17:59 | disposition home or self-care (01) ==
LOC: ER 15:31
DX: S01.01XA Laceration without foreign body of scalp, initial encounter (principal); S81.812A Laceration without foreign body, left lower leg, initial encounter; S40.011A Contusion of right shoulder, initial encounter; R51 Headache; M25.511 Pain in right shoulder; M79.605 Pain in left leg; W01.0XXA Fall on same level from slipping, tripping and stumbling without subsequent striking against object, initial encounter; Y93.89 Activity, other specified; M47.9 Spondylosis, unspecified; I10 Essential (primary) hypertension; E11.9 Type 2 diabetes mellitus without complications; Z88.8 Allergy status to other drugs, medicaments and biological substances; Z91.040 Latex allergy status
CPT/HCPCS: 99284; 90471; 73030; 73590; 70450; 72125; 90715; 12002; J3490

== ENCOUNTER 2018-08-23 22:34 | Emergency (ER) | payer OTHER, MEDICARE ==
[2018-08-23 23:13] VITALS: BP 122/78
--- NOTE | 2018-08-24 02:59 | ER Document Report ---
ED General - General Chief Complaint: Post Surgical Bleeding Stated Complaint: POST OP BLEEDING Time Seen by Provider: 08/24/18 01:48 Primary Care Provider: IAM HAMMOND PA-C [Primary Care Provider] - Follow up as needed Notes: Patient is a 57-year-old female presents with complaints of bleeding a surgical wound. She has had a nerve stimulator placed in her lower back but is now yesterday. On the way home started bleeding and therefore they came to the ER. She says she was bleeding through her shorts. Bleeding is since improved. No fevers. No infections. No other complaints at this time. No swelling to the back. TRAVEL OUTSIDE OF THE [place] IN LAST 30 DAYS: No - Related Data Allergies/Adverse Reactions: aspirin [Aspirin] Allergy (Intermediate, Verified 08/23/18 22:38) VOMITING Iodinated Contrast- Oral and IV Dye Allergy (Verified 08/23/18 22:38) Past Medical History - Social History Smoking Status: Never Smoker Frequency of alcohol use: None Drug Abuse: None Family History: Reviewed & Not Pertinent - Past Medical History Cardiac Medical History: Reports: Hx Hypercholesterolemia, Hx Hypertension, Hx Heart Murmur - MVP Neurological Medical History: Reports: Hx Migraine - Since age 9. Endocrine Medical History: Reports: Hx Diabetes Mellitus Type 1, Hx Diabetes Mellitus Type 2, Hx Hypothyroidism Renal/ Medical History: Reports: Hx Ovarian Cysts. Denies: Hx Peritoneal Dialysis GI Medical History: Reports: Hx Gastroesophageal Reflux Disease Musculoskeletal Medical History: Reports Hx Musculoskeletal Deformity Past Surgical History: Reports: Hx Cholecystectomy, Hx Gynecologic Surgery - D&C x 4, Hx Hysterectomy, Hx Orthopedic Surgery - Failed L4-L5 and L5-S1 fusion, rotator cuff surgery right, Hx Tubal Ligation - Immunizations Immunizations up to date: Yes Hx Diphtheria, Pertussis, Tetanus Vaccination: Yes Hx Pneumococcal Vaccination: 11/30/12 Review of Systems - Review of Systems Notes: My Normal Review Basic REVIEW OF SYSTEMS: CONSTITUTIONAL : Denies fever, chills, or sweats. Denies recent illness. Well-appearing. GASTROINTESTINAL: Denies abdominal pain. Denies nausea, vomitin MUSCULOSKELETAL: Spinal stimulator recently implanted. Some bleeding from the surgical incision site. SKIN: Denies rash or skin lesions. NEUROLOGICAL: Denies altered mental status or loss of consciousness. Denies sensory or motor loss. ALL OTHER SYSTEMS REVIEWED AND NEGATIVE. Physical Exam - Vital signs Vitals: Temp Pulse Resp BP Pulse Ox 97.6 F 65 16 122/78 97 08/23/18 23:11 08/23/18 23:11 08/23/18 23:11 08/23/18 23:11 08/23/18 23:11 - Notes Notes: General Appearance: Well nourished, alert, cooperative, no acute distress, mild obvious discomfort. Well-appearing. Vitals: reviewed, See vital signs table. Eyes: PERRL, EOMI, Conjuctiva clear Back: Patient has incision from recent prior similar placement in the midline of lower back. On the inferior portion of the incision site is where it appears the bleeding is coming from. There is still just a small amount of slow venous ooze coming from this site. Appears to be coming from the subcutaneous tissue just inside the incision site. There is no swelling and no evidence of underlying hematoma on exam. Extremities: strength 5/5 in all extremities, good pulses in all extremities, no swelling or tenderness in the extremities, no edema. Skin: warm, dry, appropriate color, no rash Neuro: speech clear, oriented x 3, normal affect, responds appropriately to questions. Course - Re-evaluation Re-evalutation: 08/24/18 02:59 Bleeding appeared to be from the skin at the lower end of the wound. There is no swelling. No signs of hematoma. Bleeding was almost completely resolved by the time I evaluated patient. I placed a Surgifoam as well as a clean gauze over the area. We placed her back brace back on over the area for compression. I rechecked the area 30 minutes and there is no bleeding whatsoever. Patient will be discharged home. She encouraged to return to ER if she has recurrent bleeding, fevers, redness or swelling to the area, or if she has any further concerns. Dictation of this chart was performed using voice recognition software; therefore, there may be some unintended grammatical errors. - Vital Signs Vital signs: Temp Pulse Resp BP Pulse Ox 97.6 F 65 16 122/78 97 08/23/18 23:11 08/23/18 23:11 08/23/18 23:11 08/23/18 23:11 08/23/18 23:11 Discharge - Discharge Clinical Impression: Post-op bleeding Qualifiers: Surgical complication system/body Area: subcutaneous tissue Procedure type: non-dermatologic Qualified Code(s): L76.22 - Postprocedural hemorrhage of skin and subcutaneous tissue following other procedure Condition: Good Disposition: HOME, SELF-CARE Additional Instructions: Please leave the bandage I applied on for 24 hours. You can then remove it. Please follow-up with your doctor at your scheduled postop appointment. Please return to the ER immediately if you have recurrent bleeding, fevers, redness or swelling around your wound, or if you have any concerns. Referrals: IAM HAMMOND PA-C [Primary Care Provider] - Follow up as needed
== END 2018-08-24 03:12 | disposition home or self-care (01) ==
LOC: ER 22:34
DX: L76.22 Postprocedural hemorrhage of skin and subcutaneous tissue following other procedure (principal); E11.9 Type 2 diabetes mellitus without complications; K21.9 Gastro-esophageal reflux disease without esophagitis; E78.00 Pure hypercholesterolemia, unspecified; I10 Essential (primary) hypertension; Z90.49 Acquired absence of other specified parts of digestive tract; Z90.710 Acquired absence of both cervix and uterus; Z88.6 Allergy status to analgesic agent; Z91.041 Radiographic dye allergy status
CPT/HCPCS: 99283

== ENCOUNTER → 2019-08-09 | Outpatient (CLI) | payer MEDICARE ==
--- NOTE | 2019-08-09 13:27 | WOMENS IMAGING REPORT ---
EXAM DESCRIPTION: BILAT SCREENING MAMMO W/CAD IMAGES COMPLETED DATE/TIME: 08/09/2019 12:27 pm REASON FOR STUDY: Z12.31 ENCOUNTER FOR SCREENING MAMMOGRAM FOR MALIGNANT NEOPLASM OF BREAST Z12.31 ENCNTR SCREEN MAMMOGRAM FOR MALIGNANT NEOPLASM OF NATI COMPARISON: 2017, 2018 EXAM PARAMETERS: Standard craniocaudal and mediolateral oblique views of each breast recorded using digital acquisition. Read with the assistance of CAD. .[facility] - [employer] Developer Version 9.2 LIMITATIONS: None. FINDINGS: No suspicious masses, suspicious calcifications or architectural distortion. No areas of c oncern. IMPRESSION: NEGATIVE MAMMOGRAM. BIRADS 1 BREAST DENSITY: b. There are scattered areas of fibroglandular density. BIRAD: ASSESSMENT: 1 NEGATIVE RECOMMENDATION: ROUTINE SCREENING COMMENT: The patient has been notified of the results by letter per MQSA requirements. Additional no tification policies are in place for contacting patient with suspicious or incomplete findings. Quality ID #225: The [employer] recommends an annual screening mammogram for women aged 40 years or over. This facility utilizes a reminder system to ensure that all patients receive reminder letters, and/or direct phone calls for appointments. This includes reminders for routine scr eening mammograms, diagnostic mammograms, or other Breast Imaging Interventions when appropriate. Th is patient will be placed in the appropriate reminder system. TECHNICAL DOCUMENTATION: FINDING NUMBER: (1) ASSESSMENT: (1) JOB ID: [id number] 2010 [employer]- All Rights Reserved Reading location - IP/workstation name: [email or web address]
== END ==
LOC: WI 11:15
PROVIDERS: ATTEND Physician Assistant
DX: Z12.31 Encounter for screening mammogram for malignant neoplasm of breast (principal)
CPT/HCPCS: 77067

== ENCOUNTER 2019-12-27 20:49 | Emergency (ER) | payer OTHER, MEDICARE ==
[2019-12-27] MEDS ORDERED: CEFTRIAXONE INJ 1000 MG VIAL IM ONE (21:12)
[2019-12-27] MEDS ORDERED: LIDOCAINE 1% INJ-PF (10 MG/ML) 30 ML SDV INJ ONE (21:12)
--- NOTE | 2019-12-27 21:19 | ER Document Report ---
HPI - HPI Time Seen by Provider: 12/27/19 21:12 Notes: 59-year-old female presents to the emergency room today for right upper arm erythema induration warmth to touch from a spider bite that started yesterday. Patient has noticed that her right upper arm has become more erythemic warm to touch and swollen over the last day. Has not tried any pcts-tit-qzokhlj medications. Patient reports she did have insect bites last week, did see her primary care provider, he did put her on a Medrol Dosepak and steroid ointment. She states she was stung yesterday by a potential spider to her right upper forearm, the steroids have not helped at all. Denies fevers, chills, chest pain,palpitations, shortness of breath, dyspnea, nausea, vomiting, diarrhea, abdominal pain, hematuria,blurred vision, double vision, loss of vision, speech changes, LH, dizziness, syncope, headaches, wheezing, ST, URI, neck pain, weakness, bowel or bladder dysfunction, saddle anesthesia, numbness or tingling in bilateral upper or lower extremities equally, muscle paralysis, weakness in bilateral upper or lower extremities equally or rash. Denies IV drug use. MEDICATIONS: I agree with the patient medications as charted by the RN. ALLERGIES: I agree with the allergies as charted by the RN. PAST MEDICAL HISTORY/PAST SURGICAL HISTORY: Reviewed and agree as charted by RN. SOCIAL HISTORY: Reviewed and agree as charted by RN. FAMILY HISTORY: No significant familial comorbid conditions directly related to patient complaint EXAM: Reviewed vital signs as charted by RN. REVIEW OF SYSTEMS:reviewed vital signs by RN CONSTITUTIONAL : Denies fever, chills, or sweats. Denies recent illness. EENT: Denies eye, ear, throat, or mouth pain or symptoms. Denies nasal or sinus congestion or discharge. Denies throat, tongue, or mouth swelling or difficulty swallowing. CARDIOVASCULAR: Denies chest pain. Denies palpitations or racing or irregular heart beat. Denies ankle edema. RESPIRATORY: Denies cough, cold, or chest congestion. Denies shortness of breath, difficulty breathing, or wheezing. GASTROINTESTINAL: Denies abdominal pain or distention. Denies nausea, vomiting, or diarrhea. Denies blood in vomitus, stools, or per rectum. Denies black, tarry stools. Denies constipation. GENITOURINARY: Denies difficulty urinating, painful urination, burning, frequency, blood in urine, or discharge. FEMALE GENITOURINARY: Denies vaginal bleeding, heavy or abnormal periods, irregular periods. Denies vaginal discharge or odor. MUSCULOSKELETAL: Denies back or neck pain or stiffness. Denies joint pain or swelling. SKIN: reportes bug bite to right upper arm. Denies rash, lesions or sores. HEMATOLOGIC : Denies easy bruising or bleeding. LYMPHATIC: Denies swollen, enlarged glands. NEUROLOGICAL: Denies confusion or altered mental status. Denies passing out or loss of consciousness. Denies dizziness or lightheadedness. Denies headache. Denies weakness or paralysis or loss of use of either side. Denies problems with gait or speech. Denies sensory loss, numbness, or tingling. Denies seizures. PSYCHIATRIC: Denies anxiety or stress. Denies depression, suicidal ideation, or homicidal ideation. ALL OTHER SYSTEMS REVIEWED AND NEGATIVE. PHYSICAL EXAMINATION: GENERAL: Well-appearing, well-nourished and in no acute distress. HEAD: Atraumatic, normocephalic. EYES: Pupils equal round and reactive to light, extraocular movements intact, conjunctiva are normal. ENT: Nares patent, oropharynx clear without exudates. Moist mucous membranes. NECK: Normal range of motion, supple without lymphadenopathy LUNGS: Breath sounds clear to auscultation bilaterally and equal. No wheezes rales or rhonchi. HEART: Regular rate and rhythm without murmurs ABDOMEN: Soft, nontender, nondistended abdomen. No guarding, no rebound. No masses appreciated. Female : deferred Musculoskeletal: Normal range of motion, no pitting or edema. No cyanosis. NEUROLOGICAL: Cranial nerves grossly intact. Normal speech, normal gait. Normal sensory, motor exams PSYCH: Normal mood, normal affect. SKIN: Warm, Dry, normal turgor, no rashes or lesions noted. Distal aspect of right upper arm with approximately 3 cm x 4 cm on the lateral aspect of arm with erythema induration warmth to touch. No open wounds or drainage. No streaking. Radial pulses +2 bilaterally and equally Dictation was performed using [employer] voice recognition software - REPRODUCTIVE Reproductive: DENIES: : Past Medical History - General Information source: Patient - Social History Smoking Status: Unknown if Ever Smoked Family History: Reviewed & Not Pertinent - Past Medical History Cardiac Medical History: Reports: Hx Hypercholesterolemia, Hx Hypertension, Hx Heart Murmur - MVP Neurological Medical History: Reports: Hx Migraine - Since age 9. Endocrine Medical History: Reports: Hx Diabetes Mellitus Type 1, Hx Diabetes Mellitus Type 2, Hx Hypothyroidism Renal/ Medical History: Reports: Hx Ovarian Cysts. Denies: Hx Peritoneal Dialysis GI Medical History: Reports: Hx Gastroesophageal Reflux Disease Musculoskeletal Medical History: Reports Hx Musculoskeletal Deformity Past Surgical History: Reports: Hx Cholecystectomy, Hx Gynecologic Surgery - D&C x 4, Hx Hysterectomy, Hx Orthopedic Surgery - Failed L4-L5 and L5-S1 fusion, rotator cuff surgery right, Hx Tubal Ligation - Immunizations Immunizations up to date: Yes Hx Diphtheria, Pertussis, Tetanus Vaccination: Yes Hx Pneumococcal Vaccination: 11/30/12 Vertical Provider Document - CONSTITUTIONAL Agree With Documented VS: Yes Exam Limitations: No Limitations General Appearance: WD/WN - INFECTION CONTROL TRAVEL OUTSIDE OF THE [place] IN LAST 30 DAYS: No Course - Re-evaluation Re-evalutation: 12/27/19 21:23 Afebrile vital stable no distress. Nurses notes reviewed. Patient states her blood pressure is elevated today because she is agitated being in the emergency room and also she is upset about having an infection. Patient received 1 g of Rocephin IM. Has not tried any [id number]-[id number] medications for her symptoms. Patient presents with symptoms most consistent with an acute cellulitis. Vitals within normal limits. Patient does not meet sepsis criteria is overall very well in appearance. Exam and history are not consistent with DVT. Patient will be started on coverage for both staph and strep. At this time will discharge with return precautions and follow-up recommendations. Verbal discharge instructions given a the bedside and opportunity for questions given. Medication warnings reviewed. Patient is in agreement with this plan and has verbalized understanding of return precautions and the need for primary care follow-up in the next 24-72 hours. - Vital Signs Vital signs: Temp Pulse Resp BP Pulse Ox 97.6 F 83 16 154/104 H 97 12/27/19 21:10 12/27/19 21:10 12/27/19 21:10 12/27/19 21:10 12/27/19 21:10 Discharge - Discharge Clinical Impression: Cellulitis Condition: Stable Disposition: HOME, SELF-CARE Instructions: Cellulitis ([facility]), MRSA Cellulitis ([facility]) Additional Instructions: He received 1 g Rocephin IM today. Please start on clindamycin every 6 hours as directed. Please apply heat 20 minutes on 20 minutes off several times a day. Please take Tylenol as needed for pain control. The rash is likely due to infection of your skin. You need to take the antibiotics as prescribed. Do not stop even if the rash goes away until you have completed all the antibiotics. The area of redness was traced out here in the emergency department with a marking pen. You need to return to emergency department if the redness spreads outside of this area by more than 2 cm in any direction. You should also return if you develop fevers with temperature greater than 101, persistent vomiting, wo rsening pain, or have any other symptoms that are concerning to you. Return immediately for any new or worsening symptoms. Follow up with primary care provider, call tomorrow to make followup appoin tment. Prescriptions: Clindamycin HCl 300 mg PO Q6H #28 capsule Referrals: JONNY SOLIS MD [Primary Care Provider] - Follow up as needed GENEVIEVE DYKES MD [ACTIVE STAFF] - Follow up as needed
[2019-12-27 21:37] VITALS: BP 134/75
== END 2019-12-27 21:29 | disposition home or self-care (01) ==
LOC: ER 20:49
DX: L03.90 Cellulitis, unspecified (principal); I10 Essential (primary) hypertension; E11.9 Type 2 diabetes mellitus without complications
CPT/HCPCS: 99284; 96372; J3490; J0696